=== PATIENT | female | born 1955 | race Caucasian/White ===

== ENCOUNTER → 2016-05-06 | Outpatient (CLI) | payer BC ==
--- NOTE | 2016-05-07 09:14 | KCIC ---
PROCEDURE MR of the right shoulder HISTORY Right shoulder pain. TECHNIQUE Standard multiplanar sequences are obtained. COMPARISON FINDINGS Acromioclavicular joint is mildly degenerative with undersurface osteophytes. Complete full-thickness rupture of the supraspinatus and the infraspinatus tendon. Retraction measures 3 centimeters. Moderate muscle volume loss and fatty infiltration. Intramuscular edema suggesting an acute component. Partial subscapularis tendon tear. Mild fluid enters the subdeltoid bursa. Trace glenohumeral joint fluid. Limited cartilage and labral evaluation due to motion degradation. Tear of at least the superior labrum is suspected due to some signal heterogeneity. Anterosuperior sub labral foramen noted, as is a thick cord-like middle glenohumeral ligament, normal variants. No evidence of bone lesion or acute fracture. No acute soft tissue injury. Biceps tendon appears thin with tendinosis. IMPRESSION 1. Complete rupture of the supraspinatus and infraspinatus tendon with retraction and atrophy. Partial subscapularis tendon tear. 2. Superior labral tear. Electronically signed by: Kevin Doll MD (May 07, 2016 09:13:39)
== END | disposition home or self-care (01) ==
LOC: KCIC MRI 16:27
PROVIDERS: ATTEND Orthopaedic Surgery
DX: M25.511 Pain in right shoulder (principal); S43.431A Superior glenoid labrum lesion of right shoulder, initial encounter
CPT/HCPCS: 73221

== ENCOUNTER 2016-06-28 13:53 | Inpatient (IN) | payer BC ==
[~2016-06-28] VITALS: Ht 165.1 cm; Wt 74.8 kg
[2016-06-28] MEDS ORDERED: IV NORMAL SALINE 500ML BAG 500 ML IV SCH (14:15)
--- NOTE | 2016-06-28 14:38 | PHYS DOC ---
Past Medical History Past Medical History: No Pertinent History Past Surgical History: Hysterectomy, Other Additional Past Surgical Histo: R ROTATOR CUFF/BICEP Alcohol Use: Occasionally Drug Use: None Adult General Chief Complaint Chief Complaint: BLOODY STOOL HPI HPI 60-year-old female presenting to the emergency department with bright red blood per rectum. She reports having a recent arthroscopic surgery of her right shoulder being placed on aspirin for pain control and then starting today she started having bright red blood in her stools. She's had 3 stools that fill up the entire toilet with blood. She denies abdominal pain. Onset today. Location GI tract. Duration intermittent. No alleviating factors. Review of systems is negative for chest pain shortness of breath nausea vomiting diarrhea. All other review of systems is negative unless otherwise noted in history of present illness. Review of Systems Review of Systems SEE ABOVE. Current Medications Current Medications Current Medications Medications (Trade) Dose Ordered Sig/Ila Start Time Stop Time Status Last Admin Dose Admin Sodium Chloride (Iv Sodium Chloride 0.9% 500ml Bag) 500 ml @ 500 mls/hr Q1H 06/28/16 14:15 Allergies Allergies Allergies Coded Allergies Type Severity Reaction Last Updated Verified No Known Drug Allergies 06/28/16 No Physical Exam Physical Exam Constitutional: Well developed, well nourished, no acute distress, non-toxic appearance. HENT: Normocephalic, atraumatic, bilateral external ears normal, oropharynx moist, no oral exudates, nose normal. [] Eyes: PERRLA, EOMI, conjunctiva normal, no discharge. Neck: Normal range of motion, no tenderness, supple, no stridor. [] Cardiovascular:Heart rate regular rhythm, no murmur [] Lungs & Thorax: Bilateral breath sounds clear to auscultation Abdomen: Soft nontender abdomen without rebound tenderness or guarding present. Negative McBurneys point. Negative Martinez sign. No ecchymosis present. Rectal exam shows obvious hematochezia. Probable internal hemorrhoid with fluctuance and definite external hemorrhoids present. Skin: Warm, dry, no erythema, no rash. Back: No tenderness, no CVA tenderness. [] Extremities: No tenderness, no cyanosis, no clubbing, ROM intact, no edema. [] Neurologic: Alert and oriented X 3, normal motor function, normal sensory function, no focal deficits noted. Psychologic: Affect normal, judgement normal, mood normal. [] Current Patient Data Vital Signs Vital Signs Date Time Temp Pulse Resp B/P Pulse Ox O2 Delivery O2 Flow Rate FiO2 06/28/16 14:02 98.5 104 16 140/85 96 Room Air 98.5 EKG EKG [] Radiology/Procedures Radiology/Procedures [] Course & Med Decision Making Course & Med Decision Making Pertinent Labs and Imaging studies reviewed. (See chart for details) [] 60-year-old female presenting to the emergency department with bright red blood per rectum. Vital signs showed tachycardia. Afebrile. Pertinent physical exam shows nontender abdomen. Rectal exam shows large amounts of gross red blood. Hemoccult sent however this is unnecessary. Possible internal hemorrhoid palpated however given the amount of blood I talked to our GI colleagues at [address] who stated she would come and see the patient. IV established. Patient was then admitted to our hospital for further evaluation workup and care. Dragon Disclaimer Dragon Disclaimer This electronic medical record was generated, in whole or in part, using a voice recognition dictation system. Departure Departure Impression: Primary Impression: Bright red blood per rectum Disposition: ADMITTED INPATIENT Admitting Physician: Rhonda Dexter Condition: STABLE Referrals: UNKNOWN PCP NAME (PCP) CHRISTOPHER PISANO MD Jun 28, 2016 14:38
[2016-06-28 14:42] LABS: NEG OBC FOB NEG; POS OBC FOB POS
[2016-06-28 14:44] LABS: BASO # 0.2 x10^3/uL (0.0-0.2); BASO % 1 % (0-3); EOS % 2 % (0-3); HEMOGLOBIN 14.2 g/dL (12.0-15.5); LYMPH # 2.1 x10^3/uL (1.0-4.8); LYMPH % 17 % (24-48); MEAN CORPUSCULAR HEMOGLOBIN 31 pg (25-35); MEAN CORPUSCULAR HGB CONC 33 g/dL (31-37); MEAN CORPUSCULAR VOLUME 92 fL (79-100); MONO % 5 % (0-9); NEUT % 75 % (31-73); PLATELET COUNT 427 x10^3/uL (140-400); RED BLOOD COUNT 4.66 x10^6/uL (3.50-5.40); RED CELL DISTRIBUTION WIDTH 13.2 % (11.5-14.5); WHITE BLOOD COUNT 12.4 x10^3/uL (4.0-11.0)
[2016-06-28] MEDS ORDERED: MORPHINE SULFATE 2 MG/ML DISP.SYRIN. IV PRN (15:00)
[2016-06-28] MEDS ORDERED: ONDANSETRON PF 4 MG/2 ML VIAL. IV PRN (15:00)
[2016-06-28 15:07] LABS: ANION GAP 13 (6-14); BLOOD UREA NITROGEN 12 mg/dL (7-20); CALCIUM 9.3 mg/dL (8.5-10.1); CARBON DIOXIDE 25 mmol/L (21-32); CHLORIDE 104 mmol/L (98-107); CREATININE 0.6 mg/dL (0.6-1.0); GLUCOSE 108 mg/dL (70-99); POTASSIUM 3.9 mmol/L (3.5-5.1); SODIUM 142 mmol/L (136-145)
[2016-06-28 15:13] LABS: ALBUMIN 3.7 g/dL (3.4-5.0); ALK PHOS 78 U/L (46-116); ALT (SGPT) 22 U/L (14-59); AST (SGOT) 15 U/L (15-37); DIRECT BILIRUBIN < 0.1 mg/dL (0.0-0.2); TOTAL BILIRUBIN 0.2 mg/dL (0.2-1.0); TOTAL PROTEIN 7.7 g/dL (6.4-8.2)
[2016-06-28 15:22] LABS: BILIRUBIN,URINE NEGATIVE (NEG); GLUCOSE,URINE NEGATIVE (NEG); NITRITE,URINE NEGATIVE (NEG); PROTEIN,URINE NEGATIVE (NEG-TRACE); UROBILINOGEN,URINE 0.2 mg/dL (0.2 mg/dL)
--- NOTE | 2016-06-28 15:22 | PDOC2 ---
GI CONSULT Reason For Consult: BRBPR HPI: HPI: Pleasant 60 y/o female evaluated in the ER for rectal bleeding. Case d/w Dr. Morales, ER physician, who reports rectal exam grossly positive for blood w/ external and possible internal hemorrhoid. She reports having 2 normal stools this morning followed by three episodes of passing bright red blood clots w/ small amounts of stool. Occurred between 10:30-11:45 w/o bleeding since. Denies similar episodes of bleeding in the past or h/o anemia. Denies chest pain, SOA, dizziness, abd pain, n/v. Denies h/o reflux/heartburn/dyspepsia, diarrhea, or constipation. Denies change in appetite or weight loss. No previous EGD or colonoscopy although she had planned to schedule a colonoscopy this year. Had right rotator cuff repair at [facility] on 06/15; since then has taken ASA 325mg QD (last dose 06/26), oxycodone PRN (last dose 06/25), ibuprofen (once on 06/26), and Tylenol PRN. Labs so far: hemoccult positive stool, Hgb 14.2 w/ normal indices, WBC 12.4, plt 427. Type/screen ordered, along w/ BMP, hepatic panel, INR, and UA. PMH: PMH: ovarian cysts, hysterectomy, right rotator cuff repair FH: Family History: No pertinent hx (denies GI cancers), Other (father - [place], mother - pacemaker) Social History: Smoke: Quit (1982) ALCOHOL: occassional (wine) Drugs: None ROS: GEN: Denies fevers, chills, sweats HEENT: Denies blurred vision, sore throat CV: Denies chest pain RESP: Denies shortness of air, cough GI: Per HPI : Denies hematuria, dysuria ENDO: Denies weight changes NEURO: Denies confusion, dizziness MSK: recent right rotator cuff repair SKIN: Denies jaundice, pruritus VItals: Vitals: Vital Signs Date Time Temp Pulse Resp B/P Pulse Ox O2 Delivery O2 Flow Rate FiO2 06/28/16 14:38 100 16 151/75 97 Room Air 06/28/16 14:02 98.5 98.5 Labs: Labs: Laboratory Tests Test 06/28/16 14:20 06/28/16 14:25 Stool Occult Blood Positive (NEG) White Blood Count 12.4x10^3/uL (4.0-11.0) Red Blood Count 4.66x10^6/uL (3.50-5.40) Hemoglobin 14.2g/dL (12.0-15.5) Hematocrit 43.0% (36.0-47.0) Mean Corpuscular Volume 92fL (79-100) Mean Corpuscular Hemoglobin 31pg (25-35) Mean Corpuscular Hemoglobin Concent 33g/dL (31-37) Red Cell Distribution Width 13.2% (11.5-14.5) Platelet Count 427x10^3/uL (140-400) Neutrophils (%) (Auto) 75% (31-73) Lymphocytes (%) (Auto) 17% (24-48) Monocytes (%) (Auto) 5% (0-9) Eosinophils (%) (Auto) 2% (0-3) Basophils (%) (Auto) 1% (0-3) Neutrophils # (Auto) 9.3x10^3uL (1.8-7.7) Lymphocytes # (Auto) 2.1x10^3/uL (1.0-4.8) Monocytes # (Auto) 0.6x10^3/uL (0.0-1.1) Eosinophils # (Auto) 0.2x10^3/uL (0.0-0.7) Basophils # (Auto) 0.2x10^3/uL (0.0-0.2) Allergies: Coded Allergies: No Known Drug Allergies (Unverified , 06/28/16) Medications: Current Medications Medications (Trade) Dose Ordered Sig/Ila Route PRN Reason Start Time Stop Time Status Last Admin Dose Admin Sodium Chloride (Iv Sodium Chloride 0.9% 500ml Bag) 500 ml @ 500 mls/hr Q1H IV 06/28/16 14:15 06/28/16 14:34 Imaging: Imaging: - PE: GEN: NAD, pleasant and cooperative HEENT: atraumatic, PERRL LUNGS: CTAB HEART: RRR ABD: NABS, S/ND/NT EXTREMITY: No edema, right arm in shoulder pillow abduction sling SKIN: no rashes, no jaundice NEURO/PSYCH: A & O 3 A/P: A/P: Rectal bleeding -three episodes this morning at home, describes passage of bright red blood clots -ER physician reports bright red blood on rectal exam w/ hemorrhoids -hemoccult obviously positive w/ normal Hgb (14.2) -no h/o this previously, denies other GI symptoms CRC screen -no previous colonoscopy Right rotator cuff repair 06/15/16 -has been taking ASA 325mg QD (last dose 06/26) -took ibuprofen once -- D/w Dr. Castano. Stable vitals, normal Hgb. Monitor labs and for recurrence of bleeding. Will start empiric PPI. Colonoscopy recommended, hopefully can be performed as outpatient if bleeding stops as inpatient. SATHYA PATTERSON Jun 28, 2016 15:22
[2016-06-28 15:37] LABS: BACTERIA,URINE 0 /HPF (0-FEW); RBC,URINE 0 /HPF (0-2); SQUAMOUS EPITHELIAL CELL,UR OCC /LPF; WBC,URINE OCC /HPF (0-4)
[2016-06-28] MEDS ORDERED: PANTOPRAZOLE 40 MG TABLET. PO ONE (15:45)
--- NOTE | 2016-06-28 15:46 | ACF ---
Admission Forms Criteria GASTROINTESTINAL BLEEDING Clinical Indications for Inpatient Care (Place 'X' for any and all applicable criteria): Ongoing inpatient care may be indicated for gastrointestinal bleeding with ANY ONE of the following (4)(20)(21)(22)(23)(24): [X]I. Active bleeding (eg, fresh voluminous blood in emesis or nasogastric aspirate, or per rectum) [ ]II. Hemodynamic instability [ ]III. Anticoagulation therapy or coagulopathy ((eg, advanced liver disease, irreversible anticoagulation) [ ]IV. Ischemic colitis (22) [ ]V. Endoscopy showing arterial bleeding, adherent clot, nonbleeding visible vessel, varices, flat red spots, ulcer size greater than 2 cm, or portal hypertensive gastropathy [ ]. High-risk low platelet count [ ]VII. Anemia requiring inpatient care as indicated by ANY ONE of the following a)[ ] Cognitive impairment b)[ ] Syncope c)[ ] Heart failure d)[ ] Chest pain e)[ ] Dyspnea f)[ ] Other findings suggesting inadequate perfusion (eg, peripheral or myocardial ischemia, end organ dysfunction) [ ]VIII. High-risk low platelet count [ ]IX. Suspected variceal cause of bleeding as indicated by ANY ONE of the following(27)(28): a)[ ] Known varices b)[ ] Hepatomegaly or splenomegaly c)[ ] Ascites d)[ ] Jaundice or scleral icterus e)[ ] History of liver disease (eg, cirrhosis) f)[ ] Physical findings of portal hypertension (eg, caput medusa) g)[ ] Comorbid disorder indicating risk for portal vein thrombosis (eg , abdominal surgery, sepsis, shock, exchange transfusion, prior umbilical vein catheterization) Extended stay may be needed until ALL of the following are present(20)(38)(47): [ ]a) Hemodynamic stability [ ]b) No evidence of active bleeding (eg, stable Hematocrit) [ ]c) Platelet count, prothrombin time, and partial thromboplastin time acceptable for next level of care [ ]d) Surgical or other acute intervention not needed [ ]e) Oral hydration and diet tolerated The original [employer] content created by [employer] has been revised. The portions of the content which have been revised are identified through the use of italic text or in bold, and [employer] has neither reviewed nor approved the modified material. All other unmodified content is copyright [facility]. Please see references footnoted in the original [facility] edition 2016 Admission Criteria Met?: Yes SHAISTA ULLOA Jun 28, 2016 15:46
[2016-06-28 15:49] LABS: INR 1.1 (0.8-1.1); PROTHROMBIN TIME PATIENT 13.3 SEC (11.7-14.0)
[2016-06-28] MEDS ORDERED: OXYC5CAP3 PO (18:22)
[2016-06-28] MEDS ORDERED: ASPI325T4 PO (18:22)
[2016-06-28] MEDS ORDERED: PROC5TAB14 PO (18:22)
[2016-06-28] MEDS ORDERED: NYST1000 PO (18:22)
[2016-06-28 19:22] VITALS: BP 104/65
[2016-06-28] MEDS ORDERED: PROCHLORPERAZINE 5 MG TABLET. PO PRN (21:15)
--- NOTE | 2016-06-28 22:24 | HP ---
ADMIT DATE: 06/28/2016 CHIEF COMPLAINT: Bright red blood per rectum. HISTORY OF PRESENT ILLNESS: The patient is a pleasant 60-year-old female who is relatively healthy. Basically, she presented with bright red blood per rectum. It has been occurring several times this morning. I have discussed the case with the ER physician. We are going to admit the patient and consult GI, should be noted that her hemoglobin is currently 14.2, but she does have leukocytosis of 12.4. PAST MEDICAL HISTORY: Rotator cuff surgery and hysterectomy. ALLERGIES: FLU VIRUS. FAMILY HISTORY: Coronary artery disease. SOCIAL HISTORY: She does not drink, smoke or take drugs. MEDICATIONS: Reviewed, please refer to the MRAD. REVIEW OF SYSTEMS: GENERAL: No history of weight change, weakness or fevers. SKIN: No bruising, hair changes or rashes. EYES: No blurred, double or loss of vision. NOSE AND THROAT: No history of nosebleeds, hoarseness or sore throat. HEART: No history of palpitations, chest pain or shortness of breath on exertion. LUNGS: Denies cough, hemoptysis, wheezing or shortness of breath. GASTROINTESTINAL: Complains of bright red blood per rectum. GENITOURINARY: No history of frequency, urgency, hesitancy or nocturia. NEUROLOGIC: Denies history of numbness, tingling, tremor or weakness. PSYCHIATRIC: No history of panic, anxiety or depression. ENDOCRINE: No history of heat or cold intolerance, polyuria or polydipsia. EXTREMITIES: Denies muscle weakness, joint pain, pain on walking or stiffness. PHYSICAL EXAMINATION: VITAL SIGNS: Temperature afebrile, pulse 77, respirations 22, blood pressure ____. GENERAL: She is alert, cooperative. Her is present. He is a good support for her. HEART: Normal S1, S2. LUNGS: Clear. ABDOMEN: Soft, positive bowel sounds, nontender. EXTREMITIES: No edema. SKIN: No rashes. PSYCHIATRIC: She is anxious. VASCULAR: Good capillary refill. ENDOCRINE: No thyromegaly. LYMPHATICS: No cervical nodes. HEMATOPOIETIC: No bruising. LABORATORY DATA: Electrolytes are normal. White count 12, hemoglobin 14, platelets ____. INR 1.1. Urinalysis, trace leukocyte esterases, but otherwise negative. Stool occult blood was positive. ASSESSMENT AND PLAN: Gastrointestinal bleed. The patient has been admitted. We will continue serial hemoglobin levels and transfuse if she drops below 8. Consult GI. IV Protonix. Continue home medicines, but hold her aspirin. KATHLEEN BELTRAN DO DR: SHAWNA/wilber JOB#: [id number] / [id number]
[2016-06-28 23:20] VITALS: BP 119/70
[2016-06-29] MEDS: NYSTATIN 100,000 UNITS/ML 5 ML ORAL.SUSP. PO SCH ×5 (03:06→21:26)
[2016-06-29 03:22] VITALS: BP 104/67
[2016-06-29 06:29] LABS: BASO # 0.2 x10^3/uL (0.0-0.2); BASO % 1 % (0-3); EOS % 2 % (0-3); HEMOGLOBIN 11.3 g/dL (12.0-15.5); LYMPH # 4.3 x10^3/uL (1.0-4.8); LYMPH % 28 % (24-48); MEAN CORPUSCULAR HEMOGLOBIN 31 pg (25-35); MEAN CORPUSCULAR HGB CONC 33 g/dL (31-37); MEAN CORPUSCULAR VOLUME 93 fL (79-100); MONO % 5 % (0-9); NEUT % 64 % (31-73); PLATELET COUNT 376 x10^3/uL (140-400); RED BLOOD COUNT 3.67 x10^6/uL (3.50-5.40); RED CELL DISTRIBUTION WIDTH 13.3 % (11.5-14.5); WHITE BLOOD COUNT 15.1 x10^3/uL (4.0-11.0)
[2016-06-29 06:34] LABS: CREATININE 0.6 mg/dL (0.6-1.0); POTASSIUM 4.3 mmol/L (3.5-5.1)
[2016-06-29 07:00] VITALS: BP 125/66
[2016-06-29 11:00] VITALS: BP 114/66
--- NOTE | 2016-06-29 11:17 | PDOC ---
PROGRESS NOTES Chief Complaint Chief Complaint Hematochezia ASSESSMENT AND PLAN: 1. BRBPR: tapering off. appreciate GI service input; colonoscopy ideally on O/P basis, but may need acute eval if ongoing bleed 2. Anemia: acute blood loss with 3g Hgb drop. closely monitor. 3. R rotator cuff repair on 06/15: cont pain regimen, minus NSAIDs for now Vitals Vitals Vital Signs Date Time Temp Pulse Resp B/P Pulse Ox O2 Delivery O2 Flow Rate FiO2 06/29/16 07:00 98.1 88 18 125/66 97 Room Air 98.1 Physical Exam General: Alert, Oriented X3, Cooperative Heart: Regular rate Lungs: Clear Abdomen: Normal bowel sounds, Soft, No tenderness, No masses Extremities: No clubbing, No edema Skin: No rashes Labs LABS Laboratory Tests Test 06/28/16 14:20 06/28/16 14:25 06/28/16 15:10 06/29/16 05:45 Stool Occult Blood Positive (NEG) White Blood Count 12.4x10^3/uL (4.0-11.0) 15.1x10^3/uL (4.0-11.0) Red Blood Count 4.66x10^6/uL (3.50-5.40) 3.67x10^6/uL (3.50-5.40) Hemoglobin 14.2g/dL (12.0-15.5) 11.3g/dL (12.0-15.5) Hematocrit 43.0% (36.0-47.0) 34.0% (36.0-47.0) Mean Corpuscular Volume 92fL (79-100) 93fL (79-100) Mean Corpuscular Hemoglobin 31pg (25-35) 31pg (25-35) Mean Corpuscular Hemoglobin Concent 33g/dL (31-37) 33g/dL (31-37) Red Cell Distribution Width 13.2% (11.5-14.5) 13.3% (11.5-14.5) Platelet Count 427x10^3/uL (140-400) 376x10^3/uL (140-400) Neutrophils (%) (Auto) 75% (31-73) 64% (31-73) Lymphocytes (%) (Auto) 17% (24-48) 28% (24-48) Monocytes (%) (Auto) 5% (0-9) 5% (0-9) Eosinophils (%) (Auto) 2% (0-3) 2% (0-3) Basophils (%) (Auto) 1% (0-3) 1% (0-3) Neutrophils # (Auto) 9.3x10^3uL (1.8-7.7) 9.6x10^3uL (1.8-7.7) Lymphocytes # (Auto) 2.1x10^3/uL (1.0-4.8) 4.3x10^3/uL (1.0-4.8) Monocytes # (Auto) 0.6x10^3/uL (0.0-1.1) 0.8x10^3/uL (0.0-1.1) Eosinophils # (Auto) 0.2x10^3/uL (0.0-0.7) 0.3x10^3/uL (0.0-0.7) Basophils # (Auto) 0.2x10^3/uL (0.0-0.2) 0.2x10^3/uL (0.0-0.2) Prothrombin Time 13.3SEC (11.7-14.0) Prothromb Time International Ratio 1.1 (0.8-1.1) Activated Partial Thromboplast Time 27SEC (24-38) Sodium Level 142mmol/L (136-145) 143mmol/L (136-145) Potassium Level 3.9mmol/L (3.5-5.1) 4.3mmol/L (3.5-5.1) Chloride Level 104mmol/L (98-107) 108mmol/L (98-107) Carbon Dioxide Level 25mmol/L (21-32) 27mmol/L (21-32) Anion Gap 13 (6-14) 8 (6-14) Blood Urea Nitrogen 12mg/dL (7-20) 17mg/dL (7-20) Creatinine 0.6mg/dL (0.6-1.0) 0.6mg/dL (0.6-1.0) Estimated GFR (Cockcroft-Gault) 102.0 102.0 Glucose Level 108mg/dL (70-99) 92mg/dL (70-99) Calcium Level 9.3mg/dL (8.5-10.1) 9.0mg/dL (8.5-10.1) Total Bilirubin 0.2mg/dL (0.2-1.0) Direct Bilirubin < 0.1mg/dL (0.0-0.2) Aspartate Amino Transf (AST/SGOT) 15U/L (15-37) Alanine Aminotransferase (ALT/SGPT) 22U/L (14-59) Alkaline Phosphatase 78U/L (46-116) Total Protein 7.7g/dL (6.4-8.2) Albumin 3.7g/dL (3.4-5.0) Urine Color Yellow Urine Clarity Clear Urine pH 6.0 Urine Specific [place] 1.010 Urine Protein Negativemg/dL (NEG-TRACE) Urine Glucose (UA) Negativemg/dL (NEG) Urine Ketones (Stick) Negativemg/dL (NEG) Urine Blood Small (NEG) Urine Nitrite Negative (NEG) Urine Bilirubin Negative (NEG) Urine Urobilinogen Dipstick 0.2mg/dL (0.2 mg/dL) Urine Leukocyte Esterase Trace (NEG) Urine RBC 0/HPF (0-2) Urine WBC Occ/HPF (0-4) Urine Squamous Epithelial Cells Occ/LPF Urine Amorphous Sediment Present/HPF Urine Bacteria 0/HPF (0-FEW) Review of Systems Review of Systems minimal abd discomfort. hard, dark clots per rectum, no BRB Comment Review of Relevant QUOC MAYFIELD MD Jun 29, 2016 11:17
--- NOTE | 2016-06-29 12:53 | PDOC ---
Subjective: Subjective: Bleeding seemed to slow yesterday and overnight but has picked up a little this morning. Still seeing red clots ("very thick") No pain, dizziness, SOA. Objective: Vital Signs: Vital Signs Date Time Temp Pulse Resp B/P Pulse Ox O2 Delivery O2 Flow Rate FiO2 06/29/16 11:00 97.9 103 18 114/66 96 Room Air 97.9 Labs: Laboratory Tests Test 06/28/16 14:20 06/28/16 14:25 06/28/16 15:10 06/29/16 05:45 Stool Occult Blood Positive White Blood Count 12.4x10^3/uL 15.1x10^3/uL Red Blood Count 4.66x10^6/uL 3.67x10^6/uL Hemoglobin 14.2g/dL 11.3g/dL Hematocrit 43.0% 34.0% Mean Corpuscular Volume 92fL 93fL Mean Corpuscular Hemoglobin 31pg 31pg Mean Corpuscular Hemoglobin Concent 33g/dL 33g/dL Red Cell Distribution Width 13.2% 13.3% Platelet Count 427x10^3/uL 376x10^3/uL Neutrophils (%) (Auto) 75% 64% Lymphocytes (%) (Auto) 17% 28% Monocytes (%) (Auto) 5% 5% Eosinophils (%) (Auto) 2% 2% Basophils (%) (Auto) 1% 1% Neutrophils # (Auto) 9.3x10^3uL 9.6x10^3uL Lymphocytes # (Auto) 2.1x10^3/uL 4.3x10^3/uL Monocytes # (Auto) 0.6x10^3/uL 0.8x10^3/uL Eosinophils # (Auto) 0.2x10^3/uL 0.3x10^3/uL Basophils # (Auto) 0.2x10^3/uL 0.2x10^3/uL Prothrombin Time 13.3SEC Prothromb Time International Ratio 1.1 Activated Partial Thromboplast Time 27SEC Sodium Level 142mmol/L 143mmol/L Potassium Level 3.9mmol/L 4.3mmol/L Chloride Level 104mmol/L 108mmol/L Carbon Dioxide Level 25mmol/L 27mmol/L Anion Gap 13 8 Blood Urea Nitrogen 12mg/dL 17mg/dL Creatinine 0.6mg/dL 0.6mg/dL Estimated GFR (Cockcroft-Gault) 102.0 102.0 Glucose Level 108mg/dL 92mg/dL Calcium Level 9.3mg/dL 9.0mg/dL Total Bilirubin 0.2mg/dL Direct Bilirubin < 0.1mg/dL Aspartate Amino Transf (AST/SGOT) 15U/L Alanine Aminotransferase (ALT/SGPT) 22U/L Alkaline Phosphatase 78U/L Total Protein 7.7g/dL Albumin 3.7g/dL Urine Color Yellow Urine Clarity Clear Urine pH 6.0 Urine Specific [place] 1.010 Urine Protein Negativemg/dL Urine Glucose (UA) Negativemg/dL Urine Ketones (Stick) Negativemg/dL Urine Blood Small Urine Nitrite Negative Urine Bilirubin Negative Urine Urobilinogen Dipstick 0.2mg/dL Urine Leukocyte Esterase Trace Urine RBC 0/HPF Urine WBC Occ/HPF Urine Squamous Epithelial Cells Occ/LPF Urine Amorphous Sediment Present/HPF Urine Bacteria 0/HPF PE: GEN: NAD LUNGS: CTAB HEART: tachycardic ABD: NABS, S/ND/NT NEURO/PSYCH: A & O 3 A/P: Rectal bleeding -onset 06/28 at home, slowed yesterday/overnight, increased some this a.m. -Hgb 14.2 to 11.3, on PPI w/ reg diet -no h/o this previously, denies other GI symptoms, no previous colonoscopy -recent rotator cuff repair, took ASA until 06/26 -- Reviewed w/ Dr. Castano, d/w RN. Continue same, monitor symptoms, repeat labs in a.m. At this point planning for outpatient colonoscopy. SATHYA PATTERSON Jun 29, 2016 12:53
[2016-06-29 15:00] VITALS: BP 124/71
[2016-06-29] MEDS ORDERED: ACETAMINOPHEN 650 MG TABLET.ER PO PRN (15:45)
[2016-06-29] MEDS: PANTOPRAZOLE 40 MG TABLET. PO SCH (18:02)
[2016-06-29 18:07] LABS: HEMATOCRIT 31.6 % (36.0-47.0); HEMOGLOBIN 10.4 g/dL (12.0-15.5); RED BLOOD COUNT 3.39 x10^6/uL (3.50-5.40); RED CELL DISTRIBUTION WIDTH 13.1 % (11.5-14.5); WHITE BLOOD COUNT 13.2 x10^3/uL (4.0-11.0)
[2016-06-29 19:00] VITALS: BP 104/67
[2016-06-29 23:00] VITALS: BP 132/45
[2016-06-30 07:00] VITALS: BP 110/69
[2016-06-30 07:23] LABS: CALCIUM 8.3 mg/dL (8.5-10.1); CREATININE 0.7 mg/dL (0.6-1.0); GFR 85.4; POTASSIUM 3.6 mmol/L (3.5-5.1)
[2016-06-30 07:41] LABS: BASO # 0.2 x10^3/uL (0.0-0.2); BASO % 1 % (0-3); EOS % 1 % (0-3); HEMATOCRIT 26.2 % (36.0-47.0); HEMOGLOBIN 8.7 g/dL (12.0-15.5); LYMPH # 3.4 x10^3/uL (1.0-4.8); LYMPH % 24 % (24-48); MEAN CORPUSCULAR HEMOGLOBIN 31 pg (25-35); MEAN CORPUSCULAR HGB CONC 33 g/dL (31-37); MEAN CORPUSCULAR VOLUME 93 fL (79-100); MONO % 5 % (0-9); NEUT % 69 % (31-73); PLATELET COUNT 335 x10^3/uL (140-400); RED BLOOD COUNT 2.84 x10^6/uL (3.50-5.40); RED CELL DISTRIBUTION WIDTH 13.1 % (11.5-14.5); WHITE BLOOD COUNT 14.5 x10^3/uL (4.0-11.0)
[2016-06-30] MEDS: PANTOPRAZOLE 40 MG TABLET. PO SCH (08:56)
[2016-06-30] MEDS: NYSTATIN 100,000 UNITS/ML 5 ML ORAL.SUSP. PO SCH ×4 (08:57→20:46)
[2016-06-30 11:00] VITALS: BP 109/64
--- NOTE | 2016-06-30 11:27 | PDOC ---
Subjective: Subjective: Fatigued. A bit emotional w/ everything she's been through lately. Bleeding is slowing. Passed a couple clots this morning - were the first in about 9 hours. Less abd "rumbling" today. Objective: Vital Signs: Vital Signs Date Time Temp Pulse Resp B/P Pulse Ox O2 Delivery O2 Flow Rate FiO2 06/30/16 07:25 Room Air 06/30/16 07:00 98.1 112 18 110/69 98 98.1 Labs: Laboratory Tests Test 06/29/16 17:45 06/30/16 06:22 White Blood Count 13.2x10^3/uL 14.5x10^3/uL Red Blood Count 3.39x10^6/uL 2.84x10^6/uL Hemoglobin 10.4g/dL 8.7g/dL Hematocrit 31.6% 26.2% Mean Corpuscular Volume 93fL 93fL Mean Corpuscular Hemoglobin 31pg 31pg Mean Corpuscular Hemoglobin Concent 33g/dL 33g/dL Red Cell Distribution Width 13.1% 13.1% Platelet Count 345x10^3/uL 335x10^3/uL Neutrophils (%) (Auto) 69% Lymphocytes (%) (Auto) 24% Monocytes (%) (Auto) 5% Eosinophils (%) (Auto) 1% Basophils (%) (Auto) 1% Neutrophils # (Auto) 10.0x10^3uL Lymphocytes # (Auto) 3.4x10^3/uL Monocytes # (Auto) 0.7x10^3/uL Eosinophils # (Auto) 0.2x10^3/uL Basophils # (Auto) 0.2x10^3/uL Sodium Level 140mmol/L Potassium Level 3.6mmol/L Chloride Level 106mmol/L Carbon Dioxide Level 24mmol/L Anion Gap 10 Blood Urea Nitrogen 21mg/dL Creatinine 0.7mg/dL Estimated GFR (Cockcroft-Gault) 85.4 Glucose Level 118mg/dL Calcium Level 8.3mg/dL PE: GEN: NAD, up to chair NEURO/PSYCH: A & O 3, tearful OTHER: RN, present A/P: Rectal bleeding -onset 06/28 at home, has persisted as inpatient but now slowing, Hgb from 14.2 to 8.7 -BUN increased a bit today (21), some tachycardia -no h/o this previously, denies other GI symptoms, no previous EGD or colonoscopy -recent rotator cuff repair, took ASA until 06/26, now admits to occ. NSAID use at home -has been on PPI here -- D/w Dr. Castano, pt, RN, GI lab. EGD this evening to r/o upper GI source. Consider colonoscopy later if unrevealing. SATHYA PATTERSON Jun 30, 2016 11:27 SANIA CASTANO MD Jun 30, 2016 17:27
[2016-06-30 15:00] VITALS: BP 110/70
[2016-06-30] MEDS ORDERED: IV RINGERS,LACTATED 1000ML 1,000 ML IV SCH (15:52)
[2016-06-30] MEDS ORDERED: PROPOFOL 0 ML IV ONE (16:57)
[2016-06-30] MEDS ORDERED: LIDOCAINE 2% PF Vial for OR 5 ML VIAL. ONE (16:58)
[2016-06-30] MEDS ORDERED: PROPOFOL 20 ML IV ONE (16:58)
--- NOTE | 2016-06-30 17:08 | PDOC ---
PROGRESS NOTES Chief Complaint Chief Complaint Hematochezia ASSESSMENT AND PLAN: 1. BRBPR: tapering off clinically, but anemia significantly worse. planned EGD later today 2. Anemia: acute blood loss with ongoing Hgb drop now at 8.7. sl symptomatic with tachycardia, dizziness. transfuse if <8 3. R rotator cuff repair on 06/15: cont pain regimen, minus NSAIDs for now 4. Prophylaxis: PPI Vitals Vitals Vital Signs Date Time Temp Pulse Resp B/P Pulse Ox O2 Delivery O2 Flow Rate FiO2 06/30/16 15:50 Room Air 06/30/16 15:44 99.0 105 16 98 99.0 06/30/16 11:00 109/64 Physical Exam General: Alert, Oriented X3, Cooperative Heart: Regular rate Lungs: Clear Abdomen: Normal bowel sounds, Soft, No tenderness, No masses Extremities: No clubbing, No edema Skin: No rashes Labs LABS Laboratory Tests Test 06/29/16 17:45 06/30/16 06:22 White Blood Count 13.2x10^3/uL (4.0-11.0) 14.5x10^3/uL (4.0-11.0) Red Blood Count 3.39x10^6/uL (3.50-5.40) 2.84x10^6/uL (3.50-5.40) Hemoglobin 10.4g/dL (12.0-15.5) 8.7g/dL (12.0-15.5) Hematocrit 31.6% (36.0-47.0) 26.2% (36.0-47.0) Mean Corpuscular Volume 93fL (79-100) 93fL (79-100) Mean Corpuscular Hemoglobin 31pg (25-35) 31pg (25-35) Mean Corpuscular Hemoglobin Concent 33g/dL (31-37) 33g/dL (31-37) Red Cell Distribution Width 13.1% (11.5-14.5) 13.1% (11.5-14.5) Platelet Count 345x10^3/uL (140-400) 335x10^3/uL (140-400) Neutrophils (%) (Auto) 69% (31-73) Lymphocytes (%) (Auto) 24% (24-48) Monocytes (%) (Auto) 5% (0-9) Eosinophils (%) (Auto) 1% (0-3) Basophils (%) (Auto) 1% (0-3) Neutrophils # (Auto) 10.0x10^3uL (1.8-7.7) Lymphocytes # (Auto) 3.4x10^3/uL (1.0-4.8) Monocytes # (Auto) 0.7x10^3/uL (0.0-1.1) Eosinophils # (Auto) 0.2x10^3/uL (0.0-0.7) Basophils # (Auto) 0.2x10^3/uL (0.0-0.2) Sodium Level 140mmol/L (136-145) Potassium Level 3.6mmol/L (3.5-5.1) Chloride Level 106mmol/L (98-107) Carbon Dioxide Level 24mmol/L (21-32) Anion Gap 10 (6-14) Blood Urea Nitrogen 21mg/dL (7-20) Creatinine 0.7mg/dL (0.6-1.0) Estimated GFR (Cockcroft-Gault) 85.4 Glucose Level 118mg/dL (70-99) Calcium Level 8.3mg/dL (8.5-10.1) Review of Systems Review of Systems no pain. anxious about planned EGD Comment Review of Relevant I have reviewed the following items chucky (where applicable) has been applied. Labs Laboratory Tests Test 06/29/16 05:45 06/29/16 17:45 06/30/16 06:22 White Blood Count 15.1x10^3/uL (4.0-11.0) 13.2x10^3/uL (4.0-11.0) 14.5x10^3/uL (4.0-11.0) Red Blood Count 3.67x10^6/uL (3.50-5.40) 3.39x10^6/uL (3.50-5.40) 2.84x10^6/uL (3.50-5.40) Hemoglobin 11.3g/dL (12.0-15.5) 10.4g/dL (12.0-15.5) 8.7g/dL (12.0-15.5) Hematocrit 34.0% (36.0-47.0) 31.6% (36.0-47.0) 26.2% (36.0-47.0) Mean Corpuscular Volume 93fL (79-100) 93fL (79-100) 93fL (79-100) Mean Corpuscular Hemoglobin 31pg (25-35) 31pg (25-35) 31pg (25-35) Mean Corpuscular Hemoglobin Concent 33g/dL (31-37) 33g/dL (31-37) 33g/dL (31-37) Red Cell Distribution Width 13.3% (11.5-14.5) 13.1% (11.5-14.5) 13.1% (11.5-14.5) Platelet Count 376x10^3/uL (140-400) 345x10^3/uL (140-400) 335x10^3/uL (140-400) Neutrophils (%) (Auto) 64% (31-73) 69% (31-73) Lymphocytes (%) (Auto) 28% (24-48) 24% (24-48) Monocytes (%) (Auto) 5% (0-9) 5% (0-9) Eosinophils (%) (Auto) 2% (0-3) 1% (0-3) Basophils (%) (Auto) 1% (0-3) 1% (0-3) Neutrophils # (Auto) 9.6x10^3uL (1.8-7.7) 10.0x10^3uL (1.8-7.7) Lymphocytes # (Auto) 4.3x10^3/uL (1.0-4.8) 3.4x10^3/uL (1.0-4.8) Monocytes # (Auto) 0.8x10^3/uL (0.0-1.1) 0.7x10^3/uL (0.0-1.1) Eosinophils # (Auto) 0.3x10^3/uL (0.0-0.7) 0.2x10^3/uL (0.0-0.7) Basophils # (Auto) 0.2x10^3/uL (0.0-0.2) 0.2x10^3/uL (0.0-0.2) Sodium Level 143mmol/L (136-145) 140mmol/L (136-145) Potassium Level 4.3mmol/L (3.5-5.1) 3.6mmol/L (3.5-5.1) Chloride Level 108mmol/L (98-107) 106mmol/L (98-107) Carbon Dioxide Level 27mmol/L (21-32) 24mmol/L (21-32) Anion Gap 8 (6-14) 10 (6-14) Blood Urea Nitrogen 17mg/dL (7-20) 21mg/dL (7-20) Creatinine 0.6mg/dL (0.6-1.0) 0.7mg/dL (0.6-1.0) Estimated GFR (Cockcroft-Gault) 102.0 85.4 Glucose Level 92mg/dL (70-99) 118mg/dL (70-99) Calcium Level 9.0mg/dL (8.5-10.1) 8.3mg/dL (8.5-10.1) Laboratory Tests Test 06/29/16 17:45 06/30/16 06:22 White Blood Count 13.2x10^3/uL (4.0-11.0) 14.5x10^3/uL (4.0-11.0) Red Blood Count 3.39x10^6/uL (3.50-5.40) 2.84x10^6/uL (3.50-5.40) Hemoglobin 10.4g/dL (12.0-15.5) 8.7g/dL (12.0-15.5) Hematocrit 31.6% (36.0-47.0) 26.2% (36.0-47.0) Mean Corpuscular Volume 93fL (79-100) 93fL (79-100) Mean Corpuscular Hemoglobin 31pg (25-35) 31pg (25-35) Mean Corpuscular Hemoglobin Concent 33g/dL (31-37) 33g/dL (31-37) Red Cell Distribution Width 13.1% (11.5-14.5) 13.1% (11.5-14.5) Platelet Count 345x10^3/uL (140-400) 335x10^3/uL (140-400) Neutrophils (%) (Auto) 69% (31-73) Lymphocytes (%) (Auto) 24% (24-48) Monocytes (%) (Auto) 5% (0-9) Eosinophils (%) (Auto) 1% (0-3) Basophils (%) (Auto) 1% (0-3) Neutrophils # (Auto) 10.0x10^3uL (1.8-7.7) Lymphocytes # (Auto) 3.4x10^3/uL (1.0-4.8) Monocytes # (Auto) 0.7x10^3/uL (0.0-1.1) Eosinophils # (Auto) 0.2x10^3/uL (0.0-0.7) Basophils # (Auto) 0.2x10^3/uL (0.0-0.2) Sodium Level 140mmol/L (136-145) Potassium Level 3.6mmol/L (3.5-5.1) Chloride Level 106mmol/L (98-107) Carbon Dioxide Level 24mmol/L (21-32) Anion Gap 10 (6-14) Blood Urea Nitrogen 21mg/dL (7-20) Creatinine 0.7mg/dL (0.6-1.0) Estimated GFR (Cockcroft-Gault) 85.4 Glucose Level 118mg/dL (70-99) Calcium Level 8.3mg/dL (8.5-10.1) Microbiology 06/28/16 Urine Culture - Final, Complete 06/28/16 Urine Culture Result 1 (DESHAWN) - Final, Complete Medications Current Medications Sodium Chloride (Iv Sodium Chloride 0.9% 500ml Bag) 500 ml @ 500 mls/hr Q1H IV Last administered on 06/28/16t 14:34; Start 06/28/16 at 14:15 Ondansetron HCl (Zofran) 4 mg PRN Q8HRS PRN IV NAUSEA/VOMITING; Start 06/28/16 at 15:00; Stop 06/29/16 at 14:59; Status DC Morphine Sulfate 2 mg PRN Q2HR PRN IV PAIN; Start 06/28/16 at 15:00; Stop 06/29 at 14:59; Status DC Pantoprazole Sodium (Protonix) 40 mg 1X ONCE PO Last administered on 15:45; Start 06/28/16 at 15:45; Stop 06/28/16 at 15:46; Status DC Nystatin 5 ml QID PO Last administered on 06/30/16 08:57; Start 06/28/16 at 21 :30 Prochlorperazine Maleate (Compazine) 10 mg PRN Q6HRS PRN PO NAUSEA; Start 06/28 at 21:15 Pantoprazole Sodium (Protonix) 40 mg DAILYAC PO Last administered on 06/30/16 08:56; Start 06/29/16 at 16:30 Acetaminophen 650 mg 650 mg PRN Q4HRS PRN PO PAIN; Start 06/29/16 at 15:45 Lactated Ringer's 1,000 ml @ 125 mls/hr Q8H IV ; Start 06/30/16 at 15:52; Stop 07/01/16 at 03:51 Propofol 20 ml @ As Directed STK-MED ONCE IV ; Start 06/30/16 at 16:57; Stop at 16:58; Status DC Propofol (Diprivan) 20 ml @ As Directed STK-MED ONCE IV ; Start 06/30/16 at 16: 58; Stop 06/30/16 at 16:59; Status DC Lidocaine HCl (Lidocaine Pf 2% Vial) 5 ml STK-MED ONCE .ROUTE ; Start 06/30/16 at 16:58; Stop 06/30/16 at 16:59; Status DC Active Scripts Active Reported Nystatin 100,000 Unit/1 Ml Oral.susp 5 Ml PO QID Oxycodone Hcl 5 Mg Capsule 1 Cap PO QID PRN Aspirin 325 Mg Tablet 1 Tab PO DAILY Prochlorperazine Maleate 10 Mg Tablet 1 Tab PO Q6HRS PRN Vitals/I & O Vital Sign - Last 24 Hours 06/29/16 06/29/16 06/30/16 06/30/16 19:00 23:00 03:00 07:00 Temp 98.1 98.7 98.1 98.1 98.7 98.1 Pulse 118 120 112 Resp 18 18 18 B/P 104/67 132/45 110/69 Pulse Ox 97 99 98 O2 Delivery Room Air Room Air Room Air Room Air 06/30/16 06/30/16 06/30/16 06/30/16 07:25 11:00 15:44 15:50 Temp 97.1 99.0 97.1 99.0 Pulse 128 105 Resp 18 16 B/P 109/64 Pulse Ox 97 98 O2 Delivery Room Air Room Air Room Air Intake and Output 06/29/16 06/29/16 06/30/16 15:00 23:00 07:00 Intake Total 0 ml 300 ml Balance 0 ml 300 ml QUOC MAYFIELD MD Jun 30, 2016 17:08
--- NOTE | 2016-06-30 17:34 | PDOC4 ---
Operative Note Operative Note EGD Meds propofol per anesthesia Pre-op dx acute blood loss anemia Post- od dx non-erosive gastritis Plan serial cbcs transfuse to maintain Hg > 8 bleeding scan if hg continue to drop SANIA GAMEZ MD Jun 30, 2016 17:34
[2016-06-30 19:30] VITALS: BP 123/73
[2016-06-30 23:26] VITALS: BP 99/59
[2016-07-01 03:42] VITALS: BP 109/68
[2016-07-01 07:00] VITALS: BP 107/66
[2016-07-01] MEDS: NYSTATIN 100,000 UNITS/ML 5 ML ORAL.SUSP. PO SCH ×4 (09:00→21:06)
--- NOTE | 2016-07-01 10:36 | PDOC ---
G I PROGRESS NOTE Reason for Follow-up GI bleed Subjective Few clots per rectum overnight/feeling better Physical Exam Lungs clear CV S1 S2 ABD +BS, soft, nontender Review of Relevant I have reviewed the following items chucky (where applicable) has been applied. Labs Laboratory Tests Test 06/29/16 17:45 06/30/16 06:22 White Blood Count 13.2x10^3/uL (4.0-11.0) 14.5x10^3/uL (4.0-11.0) Red Blood Count 3.39x10^6/uL (3.50-5.40) 2.84x10^6/uL (3.50-5.40) Hemoglobin 10.4g/dL (12.0-15.5) 8.7g/dL (12.0-15.5) Hematocrit 31.6% (36.0-47.0) 26.2% (36.0-47.0) Mean Corpuscular Volume 93fL (79-100) 93fL (79-100) Mean Corpuscular Hemoglobin 31pg (25-35) 31pg (25-35) Mean Corpuscular Hemoglobin Concent 33g/dL (31-37) 33g/dL (31-37) Red Cell Distribution Width 13.1% (11.5-14.5) 13.1% (11.5-14.5) Platelet Count 345x10^3/uL (140-400) 335x10^3/uL (140-400) Neutrophils (%) (Auto) 69% (31-73) Lymphocytes (%) (Auto) 24% (24-48) Monocytes (%) (Auto) 5% (0-9) Eosinophils (%) (Auto) 1% (0-3) Basophils (%) (Auto) 1% (0-3) Neutrophils # (Auto) 10.0x10^3uL (1.8-7.7) Lymphocytes # (Auto) 3.4x10^3/uL (1.0-4.8) Monocytes # (Auto) 0.7x10^3/uL (0.0-1.1) Eosinophils # (Auto) 0.2x10^3/uL (0.0-0.7) Basophils # (Auto) 0.2x10^3/uL (0.0-0.2) Sodium Level 140mmol/L (136-145) Potassium Level 3.6mmol/L (3.5-5.1) Chloride Level 106mmol/L (98-107) Carbon Dioxide Level 24mmol/L (21-32) Anion Gap 10 (6-14) Blood Urea Nitrogen 21mg/dL (7-20) Creatinine 0.7mg/dL (0.6-1.0) Estimated GFR (Cockcroft-Gault) 85.4 Glucose Level 118mg/dL (70-99) Calcium Level 8.3mg/dL (8.5-10.1) Microbiology 06/28/16 Urine Culture - Final, Complete 06/28/16 Urine Culture Result 1 (DESHAWN) - Final, Complete Medications Current Medications Sodium Chloride (Iv Sodium Chloride 0.9% 500ml Bag) 500 ml @ 500 mls/hr Q1H IV Last administered on 06/28/16 14:34; Start 06/28/16 at 14:15 Ondansetron HCl (Zofran) 4 mg PRN Q8HRS PRN IV NAUSEA/VOMITING; Start 06/28/16 at 15:00; Stop 06/29/16 at 14:59; Status DC Morphine Sulfate 2 mg PRN Q2HR PRN IV PAIN; Start 06/28/16 at 15:00; Stop 06/29 at 14:59; Status DC Pantoprazole Sodium (Protonix) 40 mg 1X ONCE PO Last administered on 15:45; Start 06/28/16 at 15:45; Stop 06/28/16 at 15:46; Status DC Nystatin 5 ml QID PO Last administered on 06/30/16 20:46; Start 06/28/16 at 21 :30 Prochlorperazine Maleate (Compazine) 10 mg PRN Q6HRS PRN PO NAUSEA; Start 06/28 at 21:15 Pantoprazole Sodium (Protonix) 40 mg DAILYAC PO Last administered on 06/30/16 08:56; Start 06/29/16 at 16:30 Acetaminophen 650 mg 650 mg PRN Q4HRS PRN PO PAIN; Start 06/29/16 at 15:45 Lactated Ringer's 1,000 ml @ 125 mls/hr Q8H IV ; Start 06/30/16 at 15:52; Stop 07/01/16 at 01:21; Status DC Propofol 0 ml @ As Directed STK-MED ONCE IV ; Start 06/30/16 at 16:57; Stop at 16:58; Status DC Propofol (Diprivan) 20 ml @ As Directed STK-MED ONCE IV ; Start 06/30/16 at 16: 58; Stop 06/30/16 at 16:59; Status DC Lidocaine HCl (Lidocaine Pf 2% Vial) 5 ml STK-MED ONCE .ROUTE ; Start 06/30/16 at 16:58; Stop 06/30/16 at 16:59; Status DC Active Scripts Active Reported Nystatin 100,000 Unit/1 Ml Oral.susp 5 Ml PO QID Oxycodone Hcl 5 Mg Capsule 1 Cap PO QID PRN Aspirin 325 Mg Tablet 1 Tab PO DAILY Prochlorperazine Maleate 10 Mg Tablet 1 Tab PO Q6HRS PRN Vitals/I & O Vital Sign - Last 24 Hours 06/30/16 06/30/16 06/30/16 06/30/16 11:00 15:00 15:44 15:50 Temp 97.1 97.9 99.0 97.1 97.9 99.0 Pulse 128 106 105 Resp 18 18 16 B/P 109/64 110/70 Pulse Ox 97 98 98 O2 Delivery Room Air Room Air Room Air 06/30/16 06/30/16 06/30/16 06/30/16 17:35 17:45 17:55 19:30 Temp 98.5 98.5 98.5 98.5 98.5 98.5 98.5 98.5 Pulse 97 97 94 111 Resp 20 20 20 20 B/P 120/73 95/68 118/68 123/73 Pulse Ox 98 100 96 O2 Delivery Nasal Cannula Room Air Room Air Room Air O2 Flow Rate 2 06/30/16 07/01/16 07/01/16 07/01/16 23:26 03:42 07:00 08:00 Temp 98.4 98.3 98.0 98.4 98.3 98.0 Pulse 100 100 99 Resp 18 18 18 B/P 99/59 109/68 107/66 Pulse Ox 97 97 95 O2 Delivery Room Air Room Air Room Air Room Air Intake and Output 06/30/16 06/30/16 07/01/16 15:00 23:00 07:00 Intake Total 120 ml 550 ml 300 ml Balance 120 ml 550 ml 300 ml Problem List Problems Medical Problems: (1) Bright red blood per rectum Status: Acute (2) GI bleed Status: Acute Assessment Acute bloodl oss anemia- with unrevealing, upper endoscopy, LGI source with diverticular bleed and/or stercoral ulcer leading differential. Tolerating PO. Await repeat CBC this morning, increase activity as tolerated SANIA GAMEZ MD Jul 01, 2016 10:36
[2016-07-01 11:00] VITALS: BP 107/67
[2016-07-01 12:26] LABS: BASO # 0.2 x10^3/uL (0.0-0.2); BASO % 1 % (0-3); EOS % 1 % (0-3); HEMATOCRIT 27.2 % (36.0-47.0); HEMOGLOBIN 8.9 g/dL (12.0-15.5); LYMPH # 3.4 x10^3/uL (1.0-4.8); LYMPH % 23 % (24-48); MEAN CORPUSCULAR HEMOGLOBIN 31 pg (25-35); MEAN CORPUSCULAR HGB CONC 33 g/dL (31-37); MEAN CORPUSCULAR VOLUME 94 fL (79-100); MONO % 5 % (0-9); NEUT % 70 % (31-73); PLATELET COUNT 370 x10^3/uL (140-400); RED CELL DISTRIBUTION WIDTH 13.3 % (11.5-14.5)
[2016-07-01] MEDS: PANTOPRAZOLE 40 MG TABLET. PO SCH (12:31)
--- NOTE | 2016-07-01 14:59 | PDOC ---
PROGRESS NOTES Chief Complaint Chief Complaint Hematochezia ASSESSMENT AND PLAN: 1. BRBPR: clinically resolved. EGD last nite w/o significant findings. 2. Anemia: acute blood loss, now stabilizing in 8-9 range. sx resolved w/o transfusion. monitor for add.l 24h, transfuse if <8. prob d/c if stable. discussed PO iron rx: had difficulty tolerating in past. trial of liquid FeSO4 qHS 3. R rotator cuff repair on 06/15: cont pain regimen, minus NSAIDs for now 4. Prophylaxis: PPI Vitals Vitals Vital Signs Date Time Temp Pulse Resp B/P Pulse Ox O2 Delivery O2 Flow Rate FiO2 07/01/16 11:00 98.0 99 18 107/67 96 Room Air 98.0 06/30/16 17:35 2 Physical Exam General: Alert, Oriented X3, Cooperative Heart: Regular rate Lungs: Clear Abdomen: Normal bowel sounds, Soft, No tenderness, No masses Extremities: No clubbing, No edema Skin: No rashes Labs LABS Laboratory Tests Test 07/01/16 12:00 White Blood Count 15.0x10^3/uL (4.0-11.0) Red Blood Count 2.90x10^6/uL (3.50-5.40) Hemoglobin 8.9g/dL (12.0-15.5) Hematocrit 27.2% (36.0-47.0) Mean Corpuscular Volume 94fL (79-100) Mean Corpuscular Hemoglobin 31pg (25-35) Mean Corpuscular Hemoglobin Concent 33g/dL (31-37) Red Cell Distribution Width 13.3% (11.5-14.5) Platelet Count 370x10^3/uL (140-400) Neutrophils (%) (Auto) 70% (31-73) Lymphocytes (%) (Auto) 23% (24-48) Monocytes (%) (Auto) 5% (0-9) Eosinophils (%) (Auto) 1% (0-3) Basophils (%) (Auto) 1% (0-3) Neutrophils # (Auto) 10.5x10^3uL (1.8-7.7) Lymphocytes # (Auto) 3.4x10^3/uL (1.0-4.8) Monocytes # (Auto) 0.8x10^3/uL (0.0-1.1) Eosinophils # (Auto) 0.1x10^3/uL (0.0-0.7) Basophils # (Auto) 0.2x10^3/uL (0.0-0.2) Review of Systems Review of Systems fells much improved. no difficulties with EGD Assessment and Plan Assessmemt and Plan Problems: QUOC MAYFIELD MD Jul 01, 2016 14:59
[2016-07-01 15:00] VITALS: BP 103/66
[2016-07-01 19:00] VITALS: BP 112/72
[2016-07-01 22:26] LABS: BASO # 0.2 x10^3/uL (0.0-0.2); BASO % 1 % (0-3); EOS % 2 % (0-3); HEMOGLOBIN 7.6 g/dL (12.0-15.5); LYMPH # 3.8 x10^3/uL (1.0-4.8); LYMPH % 27 % (24-48); MEAN CORPUSCULAR HEMOGLOBIN 31 pg (25-35); MEAN CORPUSCULAR HGB CONC 33 g/dL (31-37); MEAN CORPUSCULAR VOLUME 95 fL (79-100); MONO % 6 % (0-9); NEUT % 64 % (31-73); PLATELET COUNT 306 x10^3/uL (140-400); RED BLOOD COUNT 2.44 x10^6/uL (3.50-5.40); RED CELL DISTRIBUTION WIDTH 13.2 % (11.5-14.5)
[2016-07-01 23:44] VITALS: BP 107/52
[2016-07-02 03:28] VITALS: BP 113/47
[2016-07-02 07:00] VITALS: BP 107/66
[2016-07-02 08:21] LABS: HEMATOCRIT 24.7 % (36.0-47.0); HEMOGLOBIN 8.3 g/dL (12.0-15.5); RED BLOOD COUNT 2.63 x10^6/uL (3.50-5.40); RED CELL DISTRIBUTION WIDTH 13.8 % (11.5-14.5); WHITE BLOOD COUNT 13.3 x10^3/uL (4.0-11.0)
[2016-07-02] MEDS: NYSTATIN 100,000 UNITS/ML 5 ML ORAL.SUSP. PO SCH ×2 (08:34→12:11)
[2016-07-02] MEDS: PANTOPRAZOLE 40 MG TABLET. PO SCH (08:34)
[2016-07-02 08:36] LABS: ALBUMIN 3.3 g/dL (3.4-5.0); CALCIUM 8.8 mg/dL (8.5-10.1); CREATININE 0.6 mg/dL (0.6-1.0); POTASSIUM 3.8 mmol/L (3.5-5.1); TOTAL BILIRUBIN 0.2 mg/dL (0.2-1.0); TOTAL PROTEIN 6.7 g/dL (6.4-8.2)
[2016-07-02 11:00] VITALS: BP 119/73
--- NOTE | 2016-07-02 11:42 | DISCH ---
DISCHARGE INSTRUCTIONS Condition on Discharge Condition on Discharge: Stable Activity After Discharge Activity Instructions for Disc: No restrictions Diet after Discharge Diet after Discharge: Regular Contacting the DRSindy after DC Call your doctor for: Concerns you may have Follow-Up Follow up with: Dr Castano in1-2 months Follow Up With: PCP in 1 week QUOC MAYFIELD MD Jul 02, 2016 11:42
[2016-07-02] MEDS ORDERED: ACET650T26 PO (11:45)
[2016-07-02] MEDS ORDERED: FERR-26 PO (11:45)
[2016-07-02] MEDS ORDERED: FOLI0.8C PO (11:45)
--- NOTE | 2016-07-03 23:02 | DS ---
DATE OF DISCHARGE: 07/02/2016 CHIEF COMPLAINT: Hematochezia. HOSPITAL COURSE: The patient is a 60-year-old woman, who had undergone rotator cuff repair 2 weeks prior to presentation. She had developed acute onset, bright red hematochezia. She was asymptomatic at admission. CBCs were obtained revealing significant drop from initial 14 grams of hemoglobin to 11. Subsequently, she lost another 2-3 grams of hemoglobin. However, second day, her clinical symptoms have significantly improved. She declined the colonoscopy, which was deemed more appropriate on an outpatient basis in the case. She did, however, undergo endoscopy without any clinical bleeding site noted. Mild gastritis was present. Completely stable hemoglobin levels over 2 days, the patient was deemed stable for discharge on the . PHYSICAL EXAMINATION: VITAL SIGNS: Blood pressure of 107/67, heart rate of 99, respiratory rate at 18. GENERAL: This is a well-nourished 60-year-old woman, alert and oriented, in no acute distress. HEENT: Shows no scleral icterus. LUNGS: Clear. HEART: Regular rate and rhythm. ABDOMEN: Has positive bowel sounds, soft, nontender, without any organomegaly or masses appreciated. EXTREMITIES: Show no edema. DISCHARGE DATE: 07/02/2016. DISCHARGE DISPOSITION: To home. DISCHARGE CONDITION: Improved. DISCHARGE DIAGNOSES: Lower gastrointestinal bleed. DISCHARGE MEDICATIONS: Please refer to MAR. DISCHARGE INSTRUCTIONS: The patient will follow up with Dr. Castano in 1-2 months for consideration of colonoscopy. QUOC MAYFIELD MD DR: JOSE/nts JOB#: [id number] / [id number]
== END 2016-07-02 12:49 | disposition home or self-care (01) | DRG 378 ==
LOC: ER 13:53 → 4 NORTH 14:46
PROVIDERS: ADMIT Internal Medicine; ATTEND Internal Medicine
PROC: 0DJ08ZZ Inspection of Upper Intestinal Tract, Via Natural or Artificial Opening Endoscopic (ICD-10-PCS; principal; 2016-06-30 17:00)
DX: K92.2 Gastrointestinal hemorrhage, unspecified (principal); D62 Acute posthemorrhagic anemia; D72.829 Elevated white blood cell count, unspecified; Z82.49 Family history of ischemic heart disease and other diseases of the circulatory system; Z90.710 Acquired absence of both cervix and uterus; Z87.891 Personal history of nicotine dependence
CPT/HCPCS: 36415; 80048; 80053; 80076; 81001; 82274; 85027; 85610; 85730; 86850; 86900; 86901; 87086; J2704; J7040; 99285-25

== ENCOUNTER 2017-09-14 09:10 | Inpatient (IN) | payer BC ==
[2017-09-14 09:45] LABS: BILIRUBIN,URINE NEGATIVE (NEG); CLARITY,URINE CLEAR; COLOR,URINE YELLOW; GLUCOSE,URINE NEGATIVE (NEG); NITRITE,URINE NEGATIVE (NEG); PH,URINE 6.5; PROTEIN,URINE NEGATIVE (NEG-TRACE)
[2017-09-14 09:57] LABS: BASO # 0.1 x10^3/uL (0.0-0.2); BASO % 1 % (0-3); EOS % 0 % (0-3); HEMATOCRIT 47.8 % (36.0-47.0); HEMOGLOBIN 16.2 g/dL (12.0-15.5); LYMPH # 0.9 x10^3/uL (1.0-4.8); LYMPH % 8 % (24-48); MEAN CORPUSCULAR HEMOGLOBIN 31 pg (25-35); MEAN CORPUSCULAR HGB CONC 34 g/dL (31-37); MEAN CORPUSCULAR VOLUME 92 fL (79-100); MONO # 0.4 x10^3/uL (0.0-1.1); MONO % 3 % (0-9); NEUT # 10.9 x10^3uL (1.8-7.7); NEUT % 89 % (31-73); PLATELET COUNT 270 x10^3/uL (140-400); RED BLOOD COUNT 5.19 x10^6/uL (3.50-5.40); WHITE BLOOD COUNT 12.3 x10^3/uL (4.0-11.0)
[2017-09-14 10:03] LABS: BACTERIA,URINE MODERATE /HPF (0-FEW); RBC,URINE OCC /HPF (0-2); SQUAMOUS EPITHELIAL CELL,UR FEW /LPF
[2017-09-14 10:08] LABS: ANION GAP 12 (6-14); BLOOD UREA NITROGEN 15 mg/dL (7-20); BUN/CREATININE RATIO 25 (6-20); CARBON DIOXIDE 24 mmol/L (21-32); CHLORIDE 105 mmol/L (98-107); CREATININE 0.6 mg/dL (0.6-1.0); GFR 101.3; GLUCOSE 135 mg/dL (70-99); SODIUM 141 mmol/L (136-145)
[2017-09-14 10:12] LABS: ADD MAN DIFF? YES
[2017-09-14 10:14] LABS: ALBUMIN 4.1 g/dL (3.4-5.0); ALK PHOS 81 U/L (46-116); ALT (SGPT) 21 U/L (14-59); AST (SGOT) 19 U/L (15-37); LIPASE 152 U/L (73-393); TOTAL BILIRUBIN 0.6 mg/dL (0.2-1.0); TOTAL PROTEIN 8.1 g/dL (6.4-8.2)
[2017-09-14] MEDS: IV NORMAL SALINE 1000ML BAG 1,000 ML IV ×4 (10:14→23:38)
[2017-09-14] MEDS: ONDANSETRON PF 4 MG/2 ML VIAL. IV ×4 (10:15→20:55)
[2017-09-14] MEDS: fentaNYL PF VIAL 100 MCG/2 ML VIAL IV ×7 (10:16→23:37)
[2017-09-14 10:21] LABS: TROPONINI < 0.017 ng/mL (0.000-0.055)
[2017-09-14 10:47] LABS: % BANDS 3 % (0-9); % LYMPHS 5 % (24-48); % MONOS 2 % (0-10); % SEGS 90 % (35-66); PLT ESTIMATE ADEQUATE (ADEQUATE)
[2017-09-14] MEDS ORDERED: ACETAMINOPHEN 500 MG TABLET PO (11:00)
[2017-09-14] MEDS ORDERED: ACETAMINOPHEN 650 MG PO (11:00)
[2017-09-14] MEDS ORDERED: ONDANSETRON ODT 4 MG TAB.RAPDIS. PO (11:00)
[2017-09-14] MEDS: LABETALOL 20 MG/4 ML DISP.SYRIN. IVP (11:00)
[2017-09-14] MEDS ORDERED: PROCHLORPERAZINE 5 MG TABLET. PO (11:00)
[2017-09-14] MEDS ORDERED: oxyCODONE IR 5 MG TABLET PO (11:15)
[2017-09-14] MEDS: PANTOPRAZOLE IV PUSH 40 MG VIAL. IVP (11:45)
[2017-09-14] MEDS ORDERED: NYSTATIN 100,000 UNITS/ML 5 ML ORAL.SUSP. SWSW (13:00)
[2017-09-14] MEDS: CIPROFLOXACIN 400MG PREMIX 200 ML IV ×2 (16:01→22:07)
[2017-09-14] MEDS: FERROUS SULFATE 325 MG TABLET. PO (20:49)
[2017-09-14] MEDS: FAMOTIDINE 20 MG/2 ML VIAL IVP (20:55)
[2017-09-15] MEDS: fentaNYL PF VIAL 100 MCG/2 ML VIAL IV ×4 (02:17→09:58)
[2017-09-15] MEDS: ONDANSETRON PF 4 MG/2 ML VIAL. IV (02:17)
[2017-09-15] MEDS ORDERED: SURGICEL HEMOSTAT 2X3 EACH. (06:05)
[2017-09-15] MEDS ORDERED: HEPARIN for IV BOLUS 10,000 UNIT/10 ML VIAL. (06:05)
[2017-09-15] MEDS ORDERED: IOHEXOL 300 MG/ML 100ML VIAL. (06:05)
[2017-09-15] MEDS ORDERED: BISACODYL 10 MG SUPP.RECT. (06:06)
[2017-09-15] MEDS ORDERED: LIDOCAINE 1% PF 2 ML VIAL. ID (07:00)
[2017-09-15] MEDS ORDERED: fentaNYL PF VIAL 100 MCG/2 ML VIAL IV (07:00)
[2017-09-15] MEDS ORDERED: MORPHINE SULFATE 4 MG/ML DISP.SYRIN. IV ×2 (07:00→09:15)
[2017-09-15] MEDS: IV RINGERS,LACTATED 1000ML 1,000 ML IV ×3 (07:00→19:10)
[2017-09-15] MEDS ORDERED: PROPOFOL 20 ML IV (07:37)
[2017-09-15] MEDS ORDERED: FAMOTIDINE 20 MG/2 ML VIAL (07:37)
[2017-09-15] MEDS ORDERED: ONDANSETRON PF 4 MG/2 ML VIAL. (07:37)
[2017-09-15] MEDS ORDERED: DEXAMETHASONE SOD PHOS 20 MG/5 ML VIAL. (07:37)
[2017-09-15] MEDS ORDERED: ROCURONIUM 50 MG/5 ML VIAL. (07:37)
[2017-09-15] MEDS ORDERED: MIDAZOLAM HCL/PF 2 MG/2 ML VIAL. (07:38)
[2017-09-15] MEDS ORDERED: fentaNYL PF VIAL 100 MCG/2 ML VIAL (07:38)
[2017-09-15] MEDS ORDERED: PHENYLEPHRINE in 0.9% NACL PF 1 MG/10 ML SYRINGE. IV (08:14)
[2017-09-15] MEDS: BUPIVACAINE-EPI 0.25%-1:200000 50 ML VIAL. (08:21)
[2017-09-15] MEDS ORDERED: GLYCOPYRROLATE 1 MG/5 ML VIAL. (08:38)
[2017-09-15] MEDS ORDERED: NEOSTIGMINE METHYLSULFATE 5 MG/5 ML SYRINGE. (08:38)
[2017-09-15] MEDS ORDERED: SEVOFLURANE 61 TO 120 MINUTES. IH (09:03)
[2017-09-15] MEDS ORDERED: 0.9 % SODIUM CHLORIDE 10 ML DISP.SYRIN. IV (09:15)
[2017-09-15] MEDS ORDERED: DEXTROSE 50% 25 GM / 50ML DISP.SYRIN. IV (09:15)
[2017-09-15] MEDS: PROCHLORPERAZINE 10 MG/2 ML VIAL. IV ×2 (09:35→09:58)
[2017-09-15] MEDS: CIPROFLOXACIN 400MG PREMIX 200 ML IV ×2 (10:47→21:02)
[2017-09-15] MEDS: FOLIC ACID 1 MG TABLET. PO (14:42)
[2017-09-15] MEDS: IV NORMAL SALINE 1000ML BAG 1,000 ML IV (18:00)
[2017-09-15] MEDS: FERROUS SULFATE 325 MG TABLET. PO ×2 (21:00→21:02)
[2017-09-15] MEDS: DOCUSATE SODIUM 100 MG CAPSULE. PO (21:03)
[2017-09-15] MEDS: FAMOTIDINE 20 MG/2 ML VIAL IVP (21:03)
[2017-09-15] MEDS: HYDROcodone/APAP 5/325MG 1 TAB TABLET PO (21:06)
[2017-09-16] MEDS: IV NORMAL SALINE 1000ML BAG 1,000 ML IV ×2 (04:00→14:00)
[2017-09-16] MEDS: IV RINGERS,LACTATED 1000ML 1,000 ML IV ×2 (04:47→15:12)
[2017-09-16 04:55] LABS: ADD MAN DIFF? NO
[2017-09-16 05:05] LABS: BASO # 0.1 x10^3/uL (0.0-0.2); BASO % 1 % (0-3); EOS # 0.2 x10^3/uL (0.0-0.7); EOS % 2 % (0-3); HEMOGLOBIN 12.8 g/dL (12.0-15.5); LYMPH % 16 % (24-48); MEAN CORPUSCULAR HEMOGLOBIN 32 pg (25-35); MEAN CORPUSCULAR HGB CONC 35 g/dL (31-37); MEAN CORPUSCULAR VOLUME 93 fL (79-100); MONO # 0.8 x10^3/uL (0.0-1.1); MONO % 7 % (0-9); NEUT # 9.2 x10^3uL (1.8-7.7); NEUT % 75 % (31-73); PLATELET COUNT 205 x10^3/uL (140-400); RED BLOOD COUNT 3.98 x10^6/uL (3.50-5.40); RED CELL DISTRIBUTION WIDTH 13.3 % (11.5-14.5); WHITE BLOOD COUNT 12.3 x10^3/uL (4.0-11.0)
[2017-09-16 05:40] LABS: ALBUMIN 2.8 g/dL (3.4-5.0); ALK PHOS 55 U/L (46-116); ALT (SGPT) 34 U/L (14-59); ANION GAP 6 (6-14); AST (SGOT) 36 U/L (15-37); BLOOD UREA NITROGEN 9 mg/dL (7-20); CALCIUM 8.6 mg/dL (8.5-10.1); CARBON DIOXIDE 28 mmol/L (21-32); CHLORIDE 107 mmol/L (98-107); CREATININE 0.6 mg/dL (0.6-1.0); DIRECT BILIRUBIN 0.1 mg/dL (0.0-0.2); GFR 101.3; GLUCOSE 105 mg/dL (70-99); POTASSIUM 3.4 mmol/L (3.5-5.1); SODIUM 141 mmol/L (136-145); TOTAL BILIRUBIN 0.6 mg/dL (0.2-1.0)
[2017-09-16] MEDS: HYDROcodone/APAP 5/325MG 1 TAB TABLET PO ×2 (06:22→10:51)
[2017-09-16] MEDS: FOLIC ACID 1 MG TABLET. PO (09:00)
[2017-09-16] MEDS: DOCUSATE SODIUM 100 MG CAPSULE. PO (09:05)
[2017-09-16] MEDS: POTASSIUM CHLORIDE 20 MEQ TABLET.ER. PO (09:39)
[2017-09-16] MEDS: CIPROFLOXACIN 400MG PREMIX 200 ML IV (09:39)
[2017-09-16] MEDS ORDERED: LACTOBACILLUS RHAMNOSUS GG 1 CAPSULE. PO (21:00)
== END 2017-09-16 14:21 | disposition home or self-care (01) | DRG 419 ==
LOC: ER 09:10 → 4 NORTH 11:00
PROC: 0FT44ZZ Resection of Gallbladder, Percutaneous Endoscopic Approach (ICD-10-PCS; principal; 2017-09-15 07:58)
PROC: BF031ZZ Plain Radiography of Gallbladder and Bile Ducts using Low Osmolar Contrast (ICD-10-PCS; 2017-09-15 07:58)
DX: K80.00 Calculus of gallbladder with acute cholecystitis without obstruction (principal); K76.0 Fatty (change of) liver, not elsewhere classified; E87.6 Hypokalemia; K82.8 Other specified diseases of gallbladder; Z90.710 Acquired absence of both cervix and uterus; Z87.891 Personal history of nicotine dependence; Z87.442 Personal history of urinary calculi
CPT/HCPCS: 36415; 74300; 76705; 80048; 80053; 80076; 81001; 83690; 84484; 85007; 85025; 87086; 88304; 93005; 96361; 96374; 96375; 96376; 99285; 99285-25; A7015; C9113; J0744; J0780; J1100; J1644; J2250; J2370; J2405; J2704; J2710; J3010; J3490; J7030; J7120; Q9967; S0028

== ENCOUNTER → 2020-01-16 | Outpatient (CLI) | payer BC ==
[2017-09-16 10:50] VITALS: BP 111/66
[~2020-01-16] MED LIST: ACET650T26 PO; ASPI325T8 PO; FERR325T14 PO; FOLI0.8C PO; NYST100054 PO; OXYC5CAP PO; PROC5TAB14 PO
--- NOTE | 2020-01-16 13:56 | KCIC ---
EXAM: Bilateral screening mammogram. HISTORY: 64-year-old female presents for screening mammography. TECHNIQUE: Full-field digital craniocaudal and mediolateral oblique views of both breasts are obtained for evaluation. Computer aided detection with OkairosD software version 9.3 was applied. COMPARISON: 03/01/2015 BREAST PARENCHYMAL DENSITY: Level B - Scattered fibroglandular densities. FINDINGS: There is no new suspicious mass, microcalcification or region of architectural distortion. IMPRESSION: BI-RADS Category 2: Benign finding(s). RECOMMENDATION: Annual mammography is recommended. If your mammogram demonstrates that you have dense breast tissue, which could hide abnormalities, and if you have other risk factors for breast cancer that have been identified, you might benefit from supplemental screening tests that may be suggested by your ordering physician. Dense breast tissue, in and of itself, is a relatively common condition. This information is not provided to cause undue concern, but rather to raise your awareness and to promote discussion with your physician regarding the presence of other risk factors, in addition to dense breast tissue. A report of your mammography results will be sent to you and your physician. You should contact your physician if you have any questions or concerns regarding this report. Mammography is a sensitive method for finding small breast cancers, but it does not detect them all and is not a substitute for careful clinical examination. A negative mammogram does not negate a clinically suspicious finding and should not result in delay in biopsying a clinically suspicious abnormality. PQRS compliance statement - Patient information was entered into a reminder system with a target due date for the next mammogram. "Our facility is accredited by the [employer] Mammography Program." Electronically signed by: Deepa Lux MD (01/16/2020 1:53 PM) [email or web address]
== END | disposition home or self-care (01) ==
LOC: KCIC MAMMO 13:11
PROVIDERS: ATTEND Obstetrics & Gynecology
DX: Z12.31 Encounter for screening mammogram for malignant neoplasm of breast (principal)
CPT/HCPCS: 77067